=== PATIENT | male | born 1945 | race Hispanic/Latino ===

== ENCOUNTER → 2017-09-08 | Outpatient (CLI) | payer OTHER ==
[~2017-09-08] MED LIST: AMLO5TAB2 PO; APIX5TAB PO; DILT120C89 PO; METO100T7 PO
== END | disposition home or self-care (01) ==
LOC: RAH 10:44
DX: J90 Pleural effusion, not elsewhere classified (principal); J98.11 Atelectasis; M47.895 Other spondylosis, thoracolumbar region; Q34.0 Anomaly of pleura
CPT/HCPCS: 71250

== ENCOUNTER 2018-03-10 05:44 | Inpatient (IN) | payer OTHER ==
[~2018-03-10] VITALS: Ht 172.7 cm; Wt 87.5 kg
[~2018-03-10 05:44] MED LIST changes: -AMLO5TAB2 PO; +AMLO5TAB7 PO
[2018-03-10] MEDS ORDERED: IPRATROPIUM/ALBUTEROL SULFATE 3 ML SOLUTION IH ONE ×2 (06:59→08:02)
[2018-03-10] MEDS ORDERED: SODIUM CHLORIDE 0.9% 100 ML IV ONE (07:00)
[2018-03-10] MEDS ORDERED: SODIUM CHLORIDE 0.9% 1000ML 1,000 ML IV ONE (07:00)
[2018-03-10] MEDS ORDERED: CEFTRIAXONE SODIUM 1 GM ONE (07:00)
[2018-03-10 07:05] LABS: BASOPHILS % (AUTO) 0.7 % (0.0-5.0); EOSINOPHILS % (AUTO) 2.1 % (0.0-8.0); HEMATOCRIT 39.5 % (42-54); LYMPHOCYTES % (AUTO) 9.8 % (21.0-51.0); MEAN CORPUSCULAR HEMOGLOBIN 28.8 pg (27.0-33.0); MEAN CORPUSCULAR HGB CONC 33.6 g/dL (32.0-36.0); MEAN CORPUSCULAR VOLUME 85.8 fL (79-99); NEUTROPHILS % (AUTO) 79.4 % (40.0-77.0); PLATELET COUNT (AUTO) 276 K/uL (130-400); RED CELL DISTRIBUTION WIDTH 17.5 % (11.0-15.5); WHITE BLOOD COUNT (AUTO) 10.8 K/uL (4.8-10.8)
[2018-03-10 07:07] LABS: CREATININE 1.5 mg/dL (0.5-1.5); POTASSIUM 4.4 mmol/L (3.5-5.1)
[2018-03-10 07:17] LABS: ALBUMIN 3.2 g/dL (3.5-5.0); BILIRUBIN,TOTAL 0.5 mg/dL (0.2-1.0); TOTAL PROTEIN, SERUM 6.9 g/dL (6.0-8.3)
[2018-03-10 07:23] LABS: APPEARANCE,URINE CLEAR (CLEAR); BILIRUBIN,URINE NEGATIVE (NEGATIVE); COLOR,URINE YELLOW (YELLOW); GLUCOSE, URINE (UA) NEGATIVE (NEGATIVE); KETONES,URINE NEGATIVE (NEGATIVE); LEUKOCYTE ESTERASE ,URINE NEGATIVE (NEGATIVE); NITRATE,URINE NEGATIVE (NEGATIVE); OCCULT BLOOD,URINE MODERATE (NEGATIVE); PROTEIN,URINE NEGATIVE (NEGATIVE); UROBILINOGEN,URINE 0.2 mg/dL (0.2-1.0)
[2018-03-10 07:48] LABS: BACTERIA,URINE Rare /HPF (None Seen); CALCIUM OXALATE CRYSTALS,UR Rare /LPF (None Seen); RBC,URINE 0-1 /HPF (0-1); SQUAMOUS EPITHELIAL CELL,UR Rare /HPF (0-2); WBC,URINE None Seen /HPF (0-1)
[2018-03-10] MEDS ORDERED: METHYLPREDNISOLONE SOD SUCC 125MG/2ML VIAL ONE (08:01)
[2018-03-10] MEDS ORDERED: AZITHROMYCIN 250 MG TABLET PO ONE (08:02)
[2018-03-10] MEDS: SODIUM CHLORIDE 0.9% 1000ML 1,000 ML IV SCH ×2 (08:31→21:53)
[2018-03-10] MEDS ORDERED: GUAIFENESIN-DM 200/20 MG 10 ML PO PRN (08:45)
[2018-03-10] MEDS ORDERED: ONDANSETRON HCL 4 MG/2 ML VIAL IV PRN (08:45)
[2018-03-10] MEDS: METHYLPREDNISOLONE SOD SUCC 125MG/2ML VIAL IV SCH ×2 (08:45→16:48)
[2018-03-10] MEDS ORDERED: MORPHINE SULFATE 2 MG/ML 1ML SYG IV PRN (08:45)
[2018-03-10] MEDS ORDERED: ACETAMINOPHEN 325 MG TAB PO PRN (08:45)
[2018-03-10] MEDS ORDERED: ENOXAPARIN SODIUM 30 MG/0.3 ML SQ SCH (09:00)
[2018-03-10 10:35] VITALS: BP 149/94
[2018-03-10] MEDS ORDERED: METHYLPREDNISOLONE SOD SUCC 125MG/2ML VIAL IVP SCH (11:30)
[2018-03-10] MEDS ORDERED: FUROSEMIDE 10 MG/ML 4ML VIAL IV SCH (11:30)
[2018-03-10 12:34] LABS: ABG BASE EXCESS 3.6 mmol/L (-2.0-3.0); ABG HCO3 28.4 mmol/L (21.0-28.0); ABG OXYGEN SATURATION 95.8 % (95.0-99.0); ABG PCO2 44 mmHg (35-48)
[2018-03-10] MEDS: FAMOTIDINE 20MG TAB 20 MG TAB PO SCH ×2 (12:52→22:15)
[2018-03-10] MEDS: IPRATROPIUM/ALBUTEROL SULFATE 3 ML SOLUTION IH SCH ×3 (13:48→22:01)
[2018-03-10 16:00] VITALS: BP 132/70
[2018-03-10] MEDS: CEFEPIME HCL 1 GM VIAL IVP SCH ×2 (16:48→22:16)
[2018-03-10] MEDS ORDERED: BUDESONIDE 0.5 MG/2 ML INH IH SCH (18:00)
[2018-03-10 20:00] VITALS: BP 138/89
[2018-03-10] MEDS ORDERED: APIXABAN 5 MG TABLET PO SCH (21:00)
[2018-03-10] MEDS ORDERED: LISI-613 PO (21:45)
[2018-03-10] MEDS ORDERED: PRED5TAB PO (21:45)
[2018-03-10] MEDS ORDERED: OMEP20CA10 PO (21:45)
[2018-03-10] MEDS ORDERED: TRAM50TA4 PO (21:45)
[2018-03-10] MEDS ORDERED: TAMS0.4C32 PO (21:45)
[2018-03-10] MEDS ORDERED: AMLO5TAB7 PO (21:48)
[2018-03-10] MEDS ORDERED: VIT1CAPS5 PO (21:48)
[2018-03-10] MEDS ORDERED: MULT-1335 PO (21:48)
[2018-03-10] MEDS: DOXYCYCLINE HYCLATE 100 MG TABLET PO SCH (22:15)
[2018-03-10] MEDS: OSELTAMIVIR PHOSPHATE 75 MG CAP PO SCH (22:15)
[2018-03-10] MEDS ORDERED: TRAMADOL HCL 50 MG TABLET PO PRN (22:45)
[2018-03-11] VITALS: BP 150/82
[2018-03-11] MEDS: IPRATROPIUM/ALBUTEROL SULFATE 3 ML SOLUTION IH SCH ×4 (01:29→13:36)
[2018-03-11] MEDS: METHYLPREDNISOLONE SOD SUCC 125MG/2ML VIAL IV SCH ×2 (02:18→10:19)
[2018-03-11 04:00] VITALS: BP 151/88
[2018-03-11 05:39] LABS: MEAN CORPUSCULAR HEMOGLOBIN 27.7 pg (27.0-33.0); MEAN CORPUSCULAR HGB CONC 32.1 g/dL (32.0-36.0); MEAN CORPUSCULAR VOLUME 86.3 fL (79-99); PLATELET COUNT (AUTO) 253 K/uL (130-400); RED BLOOD CELL COUNT(AUTO) 4.63 MIL/uL (4.50-6.20); RED CELL DISTRIBUTION WIDTH 18.3 % (11.0-15.5); WHITE BLOOD COUNT (AUTO) 9.1 K/uL (4.8-10.8)
[2018-03-11] MEDS: CEFEPIME HCL 1 GM VIAL IVP SCH (05:48)
[2018-03-11 06:01] LABS: BILIRUBIN,TOTAL 0.3 mg/dL (0.2-1.0); CREATININE 1.7 mg/dL (0.5-1.5); POTASSIUM 4.9 mmol/L (3.5-5.1); TOTAL PROTEIN, SERUM 6.6 g/dL (6.0-8.3)
[2018-03-11 07:00] VITALS: BP 144/87
[2018-03-11] MEDS ORDERED: PANTOPRAZOLE SODIUM 40 MG TABLET.DR PO SCH (07:30)
[2018-03-11] MEDS ORDERED: MULTIVITAMIN TABLET PO SCH (09:00)
[2018-03-11] MEDS ORDERED: AMLODIPINE BESYLATE 5 MG TAB PO SCH (09:00)
[2018-03-11] MEDS ORDERED: LISINOPRIL 20 MG TABLET PO SCH (09:00)
[2018-03-11] MEDS ORDERED: TAMSULOSIN HCL 0.4 MG CAP.ER.24H PO SCH (09:00)
[2018-03-11] MEDS ORDERED: **HM** PRESERVISION AREDS PO SCH (09:00)
[2018-03-11] MEDS ORDERED: DILTIAZEM HCL 120 MG CAP.SR.24H PO SCH (09:00)
[2018-03-11] MEDS ORDERED: ENOXAPARIN SODIUM 30 MG/0.3 ML SQ SCH (09:00)
[2018-03-11] MEDS: DOXYCYCLINE HYCLATE 100 MG TABLET PO SCH (10:17)
[2018-03-11] MEDS: OSELTAMIVIR PHOSPHATE 75 MG CAP PO SCH (10:18)
[2018-03-11] MEDS: FAMOTIDINE 20MG TAB 20 MG TAB PO SCH (10:18)
[2018-03-11 11:00] VITALS: BP 148/78
== END 2018-03-11 15:15 | disposition left against medical advice (07) | DRG 189 ==
LOC: EDH 05:44 → EDHIP 08:20 → 3AH 10:40
PROVIDERS: ADMIT Hospitalist; ATTEND Hospitalist
DX: J96.21 Acute and chronic respiratory failure with hypoxia (principal); J44.1 Chronic obstructive pulmonary disease with (acute) exacerbation; J45.902 Unspecified asthma with status asthmaticus; E46 Unspecified protein-calorie malnutrition; J45.901 Unspecified asthma with (acute) exacerbation; J98.11 Atelectasis; J44.0 Chronic obstructive pulmonary disease with (acute) lower respiratory infection; G89.29 Other chronic pain; I10 Essential (primary) hypertension; I48.2 Chronic atrial fibrillation; Z68.29 Body mass index [BMI] 29.0-29.9, adult; Z99.81 Dependence on supplemental oxygen; Z87.891 Personal history of nicotine dependence; Z79.01 Long term (current) use of anticoagulants; Z82.0 Family history of epilepsy and other diseases of the nervous system; Z82.3 Family history of stroke; Z82.49 Family history of ischemic heart disease and other diseases of the circulatory system; Z82.5 Family history of asthma and other chronic lower respiratory diseases; Z83.3 Family history of diabetes mellitus
CPT/HCPCS: 36415; 36600; 71045; 71250; 80053; 81001; 82550; 82803; 83605; 84484; 85025; 85027; 87040; 87804; 93005; 94640; 94664; 99291; G0378; J0692; J0696; J1650; J1940; J2930; J7030

== ENCOUNTER 2018-04-17 01:36 | Emergency (ER) | payer OTHER ==
[~2018-04-17 01:36] MED LIST changes: -AMLO5TAB7 PO; +AMLO5TAB9 PO; -APIX5TAB PO; -DILT120C89 PO; +LISI-613 PO; -METO100T7 PO; +MULT-1335 PO; +OMEP20CA10 PO; +PRED5TAB PO; +TAMS0.4C32 PO; +TRAM50TA4 PO; +VIT1CAPS5 PO
[2018-04-17] MEDS ORDERED: LIDOCAINE HCL 2% VISCOUS 15 ML UDCUP ONE (01:53)
[2018-04-17] MEDS ORDERED: LIDOCAINE HCL-MPF 1% 2ML VIAL ONE (01:53)
== END 2018-04-17 03:53 | disposition home or self-care (01) ==
LOC: EDH 01:36
DX: S01.511A Laceration without foreign body of lip, initial encounter (principal); J44.9 Chronic obstructive pulmonary disease, unspecified; I10 Essential (primary) hypertension; Z90.49 Acquired absence of other specified parts of digestive tract; Z87.891 Personal history of nicotine dependence; W01.198A Fall on same level from slipping, tripping and stumbling with subsequent striking against other object, initial encounter; Y93.89 Activity, other specified; Y92.89 Other specified places as the place of occurrence of the external cause; Y99.8 Other external cause status
CPT/HCPCS: 12011; 70450; 72125; 93005; J3490

== ENCOUNTER → 2020-09-12 | Outpatient (CLI) | payer OTHER ==
[~2020-09-12] MED LIST changes: +AMLO-257 PO; -AMLO5TAB9 PO; -LISI-613 PO; +LISI20TA24 PO; -OMEP20CA10 PO; +OMEP20CA12 PO
== END | disposition home or self-care (01) ==
LOC: RESP 09:49
PROVIDERS: ATTEND Internal Medicine Pulmonary Disease
DX: R06.02 Shortness of breath (principal); J44.9 Chronic obstructive pulmonary disease, unspecified
CPT/HCPCS: 94060; 94727; 94729

== ENCOUNTER 2021-03-15 19:25 | Emergency (ER) | payer OTHER ==
[~2021-03-15] VITALS: Ht 167.6 cm; Wt 81.6 kg
[2021-03-15 19:46] LABS: BASOPHILS % (AUTO) 0.3 % (0.0-5.0); EOSINOPHILS % (AUTO) 0.3 % (0.0-8.0); LYMPHOCYTES % (AUTO) 27.1 % (21.0-51.0); MEAN CORPUSCULAR HEMOGLOBIN 29.5 pg (27.0-33.0); MEAN CORPUSCULAR HGB CONC 32.4 g/dL (32.0-36.0); MEAN CORPUSCULAR VOLUME 90.9 fL (79-99); MONOCYTES % (AUTO) 15.3 % (3.0-13.0); NEUTROPHILS % (AUTO) 56.7 % (40.0-77.0); PLATELET COUNT (AUTO) 151 K/uL (130-400); RED BLOOD CELL COUNT(AUTO) 4.51 MIL/uL (4.50-6.20); RED CELL DISTRIBUTION WIDTH 13.7 % (11.0-15.5)
[2021-03-15 19:55] LABS: ABG BASE EXCESS -0.8 mmol/L (-2.0-3.0); ABG HCO3 23.3 mmol/L (21.0-28.0); ABG OXYGEN SATURATION 95.9 % (95.0-99.0); ABG PCO2 37 mmHg (35-48)
[2021-03-15 19:57] LABS: CREATININE 1.8 mg/dL (0.5-1.5); POTASSIUM 5.1 mmol/L (3.5-5.1)
[2021-03-15 20:07] LABS: ALBUMIN 3.4 g/dL (3.5-5.0); BILIRUBIN,TOTAL 0.4 mg/dL (0.2-1.0); TOTAL PROTEIN, SERUM 7.1 g/dL (6.0-8.3)
[2021-03-15] MEDS ORDERED: AMLO-257 PO (20:37)
[2021-03-15] MEDS ORDERED: AZIT250T9 PO (20:37)
[2021-03-15] MEDS ORDERED: MONT-39 PO (20:37)
[2021-03-15] MEDS ORDERED: OXYB5TAB15 PO (20:37)
[2021-03-15] MEDS ORDERED: LISI20TA24 PO (20:37)
[2021-03-15] MEDS ORDERED: CALC-1009 PO (20:37)
[2021-03-15] MEDS ORDERED: ALEN70TA80 PO (20:37)
[2021-03-15 20:42] LABS: B-TYPE NATRIURETIC PEPTIDE 33 pg/mL (0-100)
[2021-03-15 21:54] VITALS: BP 135/95
== END 2021-03-15 22:03 | disposition left against medical advice (07) ==
LOC: EDH 19:25
DX: U07.1 COVID-19 (principal); R06.00 Dyspnea, unspecified; J44.9 Chronic obstructive pulmonary disease, unspecified; Z87.891 Personal history of nicotine dependence; Z88.8 Allergy status to other drugs, medicaments and biological substances; Z79.899 Other long term (current) drug therapy
CPT/HCPCS: 36415; 36600; 71045; 80053; 82550; 82803; 83874; 83880; 84484; 85025; 87635; 87804 ×2; 93005; 99285; C9803